=== PATIENT | female | born 1995 | race African-American/Black ===

== ENCOUNTER 2021-05-05 09:08 | Emergency (ER) | payer MEDICAID ==
[~2021-05-05] VITALS: Ht 165.1 cm; Wt 122.4 kg
[2021-05-05 09:22] VITALS: BP 141/50
[2021-05-05] MEDS ORDERED: cefTRIAXone IM 500 MG VIAL. IM ONE (09:30)
--- NOTE | 2021-05-05 09:45 | PHYS DOC ---
Past History Past Medical History: Anxiety Past Surgical History: No Surgical History Smoking: Non-smoker Alcohol Use: None Drug Use: Marijuana General Adult EDM: Chief Complaint: SEXUALLY TRANSMITTED DISEASE HPI: HPI: Patient is a 25 year old female who presents with constant dull bilateral back aches for the past week. She believes these aches could be due to COVID-19 as she was in crowds at an acting competition with her daughter two weeks ago. Denies any known exposure. States pain radiates into her abdomen. Rates her pain as 8/10 currently but states it is 10/10 at worst. Denies any alleviating factors but she notes her pain worsens when she is sitting upright. Also reports nausea and chills. She has not been vaccinated for COVID-19. She also has concerns for possible STI. Reports she had intercourse with someone other than her boyfriend this past weekend and complains of a "bleach" to her urine as well as increased urinary frequency. She does not know if she is , reports LMP was at the beginning of March. Reports she has irregular menstrual cycles. She reports urine tests were negative throughout all of her previous pregnancies. Denies trauma. Review of Systems: Review of Systems: Constitutional: Reports chills. Denies fever Eyes: Denies redness or eye pain HENT: Denies nasal congestion or sore throat Respiratory: Denies cough or shortness of breath Cardiovascular: Denies chest pain or palpitations GI: Reports abdominal pain and nausea. Denies vomiting : Reports frequency. Denies dysuria, discharge or hematuria Musculoskeletal: Reports bilateral back pain. Denies joint pain Integument: Denies rash or skin lesions Neurologic: Denies headache, focal weakness or sensory changes Complete systems were reviewed and found to be within normal limits, except as documented in this note. Current Medications: Current Meds: Current Medications Medications (Trade) Dose Ordered Sig/Shari Start Time Stop Time Status Last Admin Dose Admin Ceftriaxone Sodium (Rocephin Im) 500 mg 1X ONCE 05/05/21 09:30 05/05/21 09:31 UNV Allergies: Allergies: Denies Physical Exam: PE: Constitutional: Well developed, well nourished, no acute distress, non-toxic appearance HENT: Normocephalic, atraumatic Eyes: Conjunctiva normal, no discharge Neck: Normal range of motion, no tenderness, supple Lungs & Thorax: No respiratory distress, equal chest rise and fall Abdomen: Soft, no tenderness : Pelvic exam performed with female barrer and tacker- Renata LEVY. Normal appearing external female genitalia. There was a moderate amount of milky discharge in cervical vault but cervix was otherwise unremarkable. No CMT. No adnexal tenderness or masses palpated. Skin: Warm, dry, no erythema, no rash Back: No tenderness, no CVA tenderness Extremities: No tenderness, ROM intact, no edema Neurologic: Alert and oriented X 3, speech normal Psychologic: Affect normal, judgment normal Current Patient Data: Vital Signs: Vital Signs Date Time Temp Pulse Resp B/P (MAP) Pulse Ox O2 Delivery O2 Flow Rate FiO2 05/05/21 09:22 98.1 18 141/50 100 Room Air EKG: EKG: [] Radiology/Procedures: Radiology/Procedures: PROCEDURE: CT ABDOMEN PELVIS WO CONTRAST CT ABDOMEN+PELVIS WO INDICATION: flank pain, R>L eval for kidney stone / Spl. Instructions: / History: EXAM: Noncontrast CT of the abdomen and pelvis. Coronal and sagittal reformatted images were performed. PQRS compliance statement: One or more of the following individualized dose reduction techniques were utilized for this examination: 1. Automated exposure control 2. Adjustment of the mA and/or kV according to patient size 3. Use of iterative reconstruction technique COMPARISON: None FINDINGS: No free air, free fluid, or fluid collection. Lower chest: The visualized lower lungs are aerated. No pleural or pericardial effusion. ABDOMEN: Liver: The noncontrast liver is homogeneous in attenuation. Gallbladder and biliary: Normal gallbladder without radiopaque stone. Normal caliber bile ducts. Spleen: Normal spleen. Pancreas: The noncontrast pancreas is homogeneous in attenuation without peripancreatic inflammatory changes. Adrenal glands: Normal adrenal glands. Kidneys and ureters: No opaque urinary calculi. Normal kidneys and ureters. GI tract: The stomach is decompressed and poorly evaluated. Normal caliber small bowel and colon. Normal appendix. Vascular structures: Normal caliber abdominal aorta. Lymph nodes: No lymphadenopathy in the abdomen or pelvis. PELVIS: Genitourinary system: Normal bladder. Uterus is present. SKELETAL STRUCTURES AND SOFT TISSUES: No fracture or destructive lesion in the visualized skeleton. IMPRESSION: No acute findings. No hydronephrosis or opaque urinary calculi. Electronically signed by: Selvin Ni MD (05/05/2021 11:14 AM) [id number] Heart Score: C/O Chest Pain: N/A Course & Med Decision Making: Course & Med Decision Making Pertinent Labs and Imaging studies reviewed. (See chart for details) 25 year old female presents with bilateral back aches and concerns for COVID-19 infection. Also has concerns for possible STI exposure. Pelvic exam performed. No adnexal tenderness or CMT. Chlamydia/gonorrhea cultures obtained and pending. Empiric antibiotic initiated with IM Rocephin and a prescription for doxycycline provided. Wet mount negative. Labs also obtained and posted to chart. CT abdomen/pelvis stable. Of note patient's urine test was negative. Patient reports on her previous pregnancies her urine never reflected her . Patient therefore received a beta hCG which was also negative. Patient stable for discharge with outpatient follow-up with PCP. Discussed findings and plan with patient, who acknowledges understanding and agreement. COVID-19 CRITERIA: The patient was evaluated during the global COVID-19 pandemic, and that diagnosis was suspected/considered upon their initial presentation. Their evaluation, treatment and testing was consistent with current guidelines for patients who present with complaints or symptoms that may be related to COVID-19. Dragon Disclaimer: Dragon Disclaimer: This electronic medical record was generated, in whole or in part, using a voice recognition dictation system. Departure Departure: Impression: Primary Impression: Flank pain Additional Impressions: Concern about sexually transmitted disease in female without diagnosis Suspected 2019 novel coronavirus infection Disposition: HOME / SELF CARE / HOMELESS Condition: STABLE Referrals: PCP,NO (PCP) Patient Instructions: Flank Pain, [id number], Sexually Transmitted Disease, [id number] Additional Instructions: Increase fluid hydration. Use [id number] ibuprofen and or Tylenol for pain or discomfort. Please take prescribed antibiotics to completion. You have been tested for or diagnosed with COVID-19. It is an infection caused by a new type of coronavirus. COVID-19 will cause cold-like or mild flu symptoms in most. It can cause more severe symptoms like problems breathing in some. There is no treatment for COVID-19. The body will clear the infection over time. Self-care will help to ease discomfort. Steps to Take: Self-Care Rest as needed. Healthy habits may help you feel better. Steps include: Choose healthy foods including fruits and vegetables. Drink water throughout the day. Get plenty of sleep each night. If you smoke, try to quit. It may ease breathing. Avoid alcohol. Keep Others Healthy The virus can spread to others. Droplets are released every time you sneeze or cough. The droplets can get into the mouth, nose, or eyes of people near you and lead to infection. To lower the chances of spreading COVID-19 to others: Stay at home until your doctor has said it is safe to leave. If you tested positive this will mean staying isolated until both of the following are true: At least 7 days have passed since the start of illness. You are free of fever for at least 72 hours without the use of medicine. During this time: - Avoid public areas, events, or transportation. Do not return to work or school until your doctor has said it is safe to do so. - Call ahead if you need to go to a medical center. Let them know you may have COVID-19. It will help them guide you where to go. They may also ask you to wear a facemask when you come to the office. - If you call for emergency medical services, let them know you may have COVID- 19. While at home: - Try to avoid close contact with others. Stay about 6 feet away. - If possible, spend most of your time in a separate room from others. - Use a face mask if you will be in close contact with others such as sharing a room or vehicle. - Have someone wipe down common surfaces in the home. Use household funeral driver every day on areas like doorknobs, counters, or sinks. - Cough or sneeze into a tissue. Throw the tissue away right after use. If a tissue is not available, cough or sneeze into your elbow. - Wash your hands often. Wash them after sneezing or coughing. Use soap and water and wash for at least 20 seconds. Alcohol based hand tuckpointer cleaner caulker can be used if soap and water is not available. - Do not prepare food for others. Avoid sharing personal items like forks, spoons, or toothbrushes. - Avoid close contact with pets while you are sick. There is no evidence of the virus passing to pets. This is a safety step until more is known about this virus. Isolation can be frustrating. Social interaction can help. Keep in touch with friends and family through phone and tech options. You can still interact with others in your home, just keep a safe distance of about 6 feet. Follow-up: Your doctors office will check in with you to see if there are any changes in your health. You may be asked to keep track of symptoms to share with them. They will also let you know when you are clear to be in public again. Problems to Look Out For: Contact your doctor if your recovery is not going as you expect. Get emergency care if you have problems such as: - Trouble breathing - Nonstop chest pain or pressure - Changes in awareness, confusion, or problems waking - Lips or face have bluish color - Worsening of symptoms If you think you have an emergency, call for emergency medical services right away. As taken from [facility] Doxycycline Hyclate (DOXYCYCLINE HYCLATE) 100 Mg Tablet 1 TAB PO BID for STD exposure, #14 TAB Prov: SHONDA CEBALLOS DO 05/05/21 Orphenadrine Citrate (ORPHENADRINE CITRATE) 100 Mg Tablet.er 1 TAB PO BID PRN for MUSCLE PAIN, #14 TAB 0 Refills Prov: SHONDA CEBALLOS DO 05/05/21 COVID-19 Assessment COVID-19 Patient Risks: Age 65 or older: No Sign of co-morbidity: No Exp to person + for COVID: No Exp to PUI: No Travel from affected area: No Lower respiratory symptoms: No Fever: Yes Other: Yes PPE Use: Full PPE with N95 mask or PAPR: Yes SHONDA CEBALLOS DO May 05, 2021 09:44
[2021-05-05 10:24] LABS: BILIRUBIN,URINE NEG (NEG); CLARITY,URINE CLEAR; COLOR,URINE YELLOW; GLUCOSE,URINE NEG (NEG); NITRITE,URINE NEG (NEG)
[2021-05-05 10:25] LABS: BACTERIA,URINE 0 /HPF (0-FEW); RBC,URINE 0 /HPF (0-2); SQUAMOUS EPITHELIAL CELL,UR FEW /LPF; WBC,URINE 0 /HPF (0-4)
[2021-05-05] MEDS ORDERED: IV NORMAL SALINE 1,000ML 1,000 ML IV ONE (10:45)
[2021-05-05] MEDS ORDERED: KETOROLAC 15 MG/ML VIAL. IVP ONE (10:45)
[2021-05-05] MEDS ORDERED: METOCLOPRAMIDE HCL 10 MG/2 ML VIAL. IVP ONE (10:45)
[2021-05-05 11:01] LABS: BASO # 0.1 x10^3/uL (0.0-0.2); BASO % 1 % (0-3); EOS # 0.1 x10^3/uL (0.0-0.7); EOS % 1 % (0-3); HEMATOCRIT 41.4 % (36.0-47.0); HEMOGLOBIN 13.6 g/dL (12.0-15.5); LYMPH # 2.7 x10^3/uL (1.0-4.8); LYMPH % 31 % (24-48); MEAN CORPUSCULAR HEMOGLOBIN 30 pg (25-35); MEAN CORPUSCULAR HGB CONC 33 g/dL (31-37); MEAN CORPUSCULAR VOLUME 90 fL (79-100); MONO # 0.4 x10^3/uL (0.0-1.1); MONO % 4 % (0-9); NEUT # 5.4 x10^3uL (1.8-7.7); NEUT % 62 % (31-73); PLATELET COUNT 319 x10^3/uL (140-400); RED BLOOD COUNT 4.59 x10^6/uL (3.50-5.40); RED CELL DISTRIBUTION WIDTH 14.1 % (11.5-14.5); WHITE BLOOD COUNT 8.7 x10^3/uL (4.0-11.0)
[2021-05-05 11:11] LABS: CALCIUM 9.3 mg/dL (8.5-10.1); CREATININE 0.8 mg/dL (0.6-1.0); GFR 105.8; POTASSIUM 4.1 mmol/L (3.5-5.1)
--- NOTE | 2021-05-05 11:16 | RAD ---
CT ABDOMEN+PELVIS WO INDICATION: flank pain, R>L eval for kidney stone / Spl. Instructions: / History: EXAM: Noncontrast CT of the abdomen and pelvis. Coronal and sagittal reformatted images were perform ed. PQRS compliance statement: One or more of the following individualized dose reduction techniques were utilized for this examinat ion: 1. Automated exposure control 2. Adjustment of the mA and/or kV according to patient size 3. Use of iterative reconstruction technique COMPARISON: None FINDINGS: No free air, free fluid, or fluid collection. Lower chest: The visualized lower lungs are aerated. No pleural or pericardial effusion. ABDOMEN: Liver: The noncontrast liver is homogeneous in attenuation. Gallbladder and biliary: Normal gallbladder without radiopaque stone. Normal caliber bile ducts. Spleen: Normal spleen. Pancreas: The noncontrast pancreas is homogeneous in attenuation without peripancreatic inflammatory changes. Adrenal glands: Normal adrenal glands. Kidneys and ureters: No opaque urinary calculi. Normal kidneys and ureters. GI tract: The stomach is decompressed and poorly evaluated. Normal caliber small bowel and colon. Nor mal appendix. Vascular structures: Normal caliber abdominal aorta. Lymph nodes: No lymphadenopathy in the abdomen or pelvis. PELVIS: Genitourinary system: Normal bladder. Uterus is present. SKELETAL STRUCTURES AND SOFT TISSUES: No fracture or destructive lesion in the visualized skeleton. IMPRESSION: No acute findings. No hydronephrosis or opaque urinary calculi. Electronically signed by: Selvin Ni MD (05/05/2021 11:14 AM) [id number]
[2021-05-05 11:17] LABS: ALBUMIN 3.7 g/dL (3.4-5.0); ALBUMIN/GLOBULIN RATIO 0.8 (1.0-1.7); MAGNESIUM 2.1 mg/dL (1.8-2.4); TOTAL BILIRUBIN 0.4 mg/dL (0.2-1.0); TOTAL PROTEIN 8.4 g/dL (6.4-8.2)
[2021-05-05] MEDS ORDERED: DOXY100T PO (11:26)
[2021-05-05] MEDS ORDERED: ORPH-16 PO (11:26)
[2021-05-07 01:07] LABS: CHLAMYDIA PROBE Negative (Negative)
== END 2021-05-05 11:51 | disposition home or self-care (01) ==
LOC: ER 09:08
DX: R10.9 Unspecified abdominal pain (principal); M54.89 Other dorsalgia; R11.0 Nausea; F41.9 Anxiety disorder, unspecified; Z20.2 Contact with and (suspected) exposure to infections with a predominantly sexual mode of transmission; Z20.822 Contact with and (suspected) exposure to COVID-19
CPT/HCPCS: 36415; 74176; 80053; 81001; 81025; 83605; 83735; 84702; 85025; 87491; 87591; 96361; 96372; 96374; 96375; 99284; C9803; J0696; J1885; J2765; J7030; Q0111; U0003

== ENCOUNTER 2021-07-15 20:26 | Emergency (ER) | payer MEDICAID ==
[~2021-07-15] VITALS: Ht 165.1 cm; Wt 119.2 kg
[~2021-07-15 20:26] MED LIST: DOXY100T PO; ORPH-16 PO
[2021-07-15 21:42] LABS: BACTERIA,URINE FEW /HPF (0-FEW); BILIRUBIN,URINE SMALL (NEG); CLARITY,URINE CLOUDY; COLOR,URINE YELLOW; GLUCOSE,URINE NEG (NEG); NITRITE,URINE NEG (NEG); SQUAMOUS EPITHELIAL CELL,UR MOD /LPF
[2021-07-15 21:46] LABS: BASO % 1 % (0-3); EOS # 0.1 x10^3/uL (0.0-0.7); EOS % 2 % (0-3); HEMATOCRIT 38.4 % (36.0-47.0); HEMOGLOBIN 12.7 g/dL (12.0-15.5); LYMPH % 49 % (24-48); MEAN CORPUSCULAR HEMOGLOBIN 30 pg (25-35); MEAN CORPUSCULAR HGB CONC 33 g/dL (31-37); MEAN CORPUSCULAR VOLUME 89 fL (79-100); MONO # 0.5 x10^3/uL (0.0-1.1); MONO % 8 % (0-9); NEUT # 2.4 x10^3uL (1.8-7.7); NEUT % 40 % (31-73); PLATELET COUNT 287 x10^3/uL (140-400); RED BLOOD COUNT 4.31 x10^6/uL (3.50-5.40); RED CELL DISTRIBUTION WIDTH 13.8 % (11.5-14.5)
[2021-07-15] MEDS: IV NORMAL SALINE 1,000ML 1,000 ML IV ONE (21:46)
--- NOTE | 2021-07-15 21:46 | PHYS DOC ---
Past History Past Medical History: Anxiety (ESTEFANI LEVIN APRN) Past Surgical History: No Surgical History (ESTEFANI LEVIN APRN) Smoking: Non-smoker Alcohol Use: None Drug Use: Marijuana (ESTEFANI LEVIN APRN) General Adult EDM: Chief Complaint: NAUSEA/VOMITING/DIARRHEA HPI: HPI: Patient is a 26-year-old female who presents with nausea and vomiting for the last 3 to 4 days. Patient states "I cannot keep anything down". Patient reports weakness and dizziness. Patient appears very anxious. Patient is also stating "my hands and feet keep walking up and getting tingly". Patient denies fever. Denies shortness of breath, cough. No meds prior to arrival. Denies medical history. (ESTEFANI LEVIN APRN) Review of Systems: Review of Systems: ROS At least 10 ROS systems have been reviewed and are negative except as documented in the HPI. General: Negative except as outlined in HPI above. Skin: Negative except as outlined in HPI above. HEENT: Negative except as outlined in HPI above. Neck: Negative except as outlined in HPI above. Respiratory: Negative except as outlined in HPI above.. Cardiovascular: Negative except as outlined in HPI above. Abdomen: Negative except as outlined in HPI above. : Negative except as outlined in HPI above. Back/MSK: Negative except as outlined in HPI above. Neuro: Negative except as outlined in HPI above. Psych: Negative except as outlined in HPI above. (ESTEFANI LEVIN APRN) Current Medications: Current Meds: Current Medications Medications (Trade) Dose Ordered Sig/Shari Start Time Stop Time Status Last Admin Dose Admin Ondansetron HCl (Zofran) 4 mg 1X ONCE 07/15/21 21:30 07/15/21 21:31 DC Sodium Chloride 1,000 ml @ 1,000 mls/hr 1X ONCE 07/15/21 21:30 07/15/21 22:29 (ESTEFANI LEVIN APRN) Allergies: Allergies: Allergies Coded Allergies Type Severity Reaction Last Updated Verified No Known Drug Allergies 05/05/21 No (ESTEFANI LEVIN APRN) Physical Exam: PE: Constitutional: Well developed, well nourished, no acute distress, non-toxic appearance. [] HENT: Normocephalic, atraumatic, bilateral external ears normal, oropharynx moist, no oral exudates, nose normal. [] Eyes: PERRLA, EOMI, conjunctiva normal, no discharge. [] Neck: Normal range of motion, no tenderness, supple, no stridor. [] Cardiovascular:Heart rate sinus tachycardia, no murmur [] Lungs & Thorax: Bilateral breath sounds clear to auscultation [] Abdomen: Bowel sounds normal, soft, no tenderness, no masses, no pulsatile masses. [] Skin: Warm, dry, no erythema, no rash. [] Back: No tenderness, no CVA tenderness. [] Extremities: No tenderness, no cyanosis, no clubbing, ROM intact, no edema. [] Neurologic: Alert and oriented X 3, normal motor function, normal sensory function, no focal deficits noted. [] Psychologic: Affect normal, judgement normal, anxious mood (ESTEFANI LEVIN APRN) Current Patient Data: Labs: Laboratory Tests Test 07/15/21 21:24 POC Urine HCG, Qualitative hcg negative (Negative) Vital Signs: Vital Signs Date Time Temp Pulse Resp B/P (MAP) Pulse Ox O2 Delivery O2 Flow Rate FiO2 07/15/21 20:45 98.3 104 20 103/66 (78) 100 Room Air (ESTEFANI LEVIN APRN) EKG: EKG: Normal sinus rhythm, heart rate 80 bpm. No STEMI. Read by Dr. Huizar. [] (ESTEFANI LEVIN APRN) Radiology/Procedures: Radiology/Procedures: [] (ESTEFANI LEVIN APRN) Heart Score: C/O Chest Pain: No Risk Factors: Risk Factors: DM, Current or recent (<one month) smoker, HTN, HLP, family history of CAD, obesity. Risk Scores: Score 0 - 3: 2.5% MACE over next 6 weeks - Discharge Home Score 4 - 6: 20.3% MACE over next 6 weeks - Admit for Clinical Observation Score 7 - 10: 72.7% MACE over next 6 weeks - Early Invasive Strategies (ESTEFANI LEVIN APRN) Course & Med Decision Making: Course & Med Decision Making Pertinent Labs and Imaging studies reviewed. (See chart for details) [] 26-year-old male presents with nausea and vomiting for the last 3 to 4 days. Patient appears very anxious. Discussed with patient that she was h yperventilating and causing herself to feel dizzy and her hands and feet to lock up. Patient given NS bolus along with 4 mg of Zofran. Tested patient for Covid. Patient denies shortness of breath or cough. EKG shows normal sinus rhythm, 88 bpm, no STEMI. Patient report given to Dr. Huizar at 2145. (ESTEFANI LEVIN APRN) Course & Med Decision Making See Charting by Chas prior shift change for details. Patient take Tylenol and ibuprofen for discomfort. Wear a mask covers nose and mouth at all times. Self isolate. Encourage patient to get COVID vaccination went over this acute syndrome. Patient still adamant that the risk of getting vaccination greater than the infection Covid. States she plans on never getting the COVID vaccination. Pt. stated she had a relative because they got the vaccination. Clear fluid diet for two days. No solids or milk products. Impression: 1. Viral Syndrome (BONNY HUIZAR MD) Dragon Disclaimer: Dragon Disclaimer: This electronic medical record was generated, in whole or in part, using a voice recognition dictation system. (ESTEFANI LEVIN APRN) Departure Departure: Referrals: DILLON ALEJO (PCP) Scripts Ondansetron Hcl (ZOFRAN) 4 Mg Tablet 8 MG PO QIDPRN for nv, #30 TAB Prov: BONNY HUIZAR MD 07/16/21 Dragon Disclaimer This chart was dictated in whole or in part using Voice Recognition software in a busy, high-work load, and often noisy Emergency Department environment. It may contain unintended and wholly unrecognized errors or omissions. (BONNY HUIZAR MD) Attending Signature Attending Signature I have participated in the care of this patient and I have reviewed and agree with all pertinent clinical information above including history, exam, and recommendations. (BONNY HUIZAR MD) Attending Signature Attending Signature I have participated in the care of this patient and I have reviewed and agree with all pertinent clinical information above including history, exam, and recommendations. (BONNY HUIZAR MD) ESTEFANI LEVIN APRN Jul 15, 2021 21:46 BONNY HUIZAR MD Jul 16, 2021 00:11
[2021-07-15] MEDS: ONDANSETRON PF 4 MG/2 ML VIAL. IVP ONE (21:47)
[2021-07-15 21:54] LABS: CREATININE 0.6 mg/dL (0.6-1.0); GFR 146.2; POTASSIUM 4.1 mmol/L (3.5-5.1)
[2021-07-15 22:00] LABS: ALBUMIN 3.7 g/dL (3.4-5.0); ALBUMIN/GLOBULIN RATIO 0.9 (1.0-1.7); TOTAL BILIRUBIN 0.5 mg/dL (0.2-1.0); TOTAL PROTEIN 7.9 g/dL (6.4-8.2)
[2021-07-16 00:07] VITALS: BP 105/95
[2021-07-16] MEDS ORDERED: ONDA4TAB7 PO (00:18)
== END 2021-07-16 00:40 | disposition home or self-care (01) ==
LOC: ER 20:26
DX: B34.9 Viral infection, unspecified (principal); R11.2 Nausea with vomiting, unspecified; R42 Dizziness and giddiness; Z20.822 Contact with and (suspected) exposure to COVID-19
CPT/HCPCS: 80053; 81001; 81025; 85025; 93005; 96361; 96374; 99284; C9803; J2405; J7030; U0003

== ENCOUNTER 2021-07-28 08:17 | Emergency (ER) | payer MEDICAID ==
[~2021-07-28] VITALS: Ht 165.1 cm; Wt 117.2 kg
[~2021-07-28 08:17] MED LIST changes: +ONDA4TAB7 PO
[2021-07-28 08:30] VITALS: BP 156/83
--- NOTE | 2021-07-28 09:23 | PHYS DOC ---
Past History Past Medical History: Anxiety (ESTEFANI LEVIN APRN) Past Surgical History: No Surgical History (ESTEFANI LEVIN APRN) Smoking: Non-smoker Alcohol Use: None Drug Use: Marijuana (ESTEFANI LEVIN APRN) General Adult EDM: Chief Complaint: LACERATION/AVULSION HPI: HPI: Patient is a 26-year-old female presents with right, fifth digit abrasion, and pain. Patient states "I was having anxiety attack last night and was running up my steps outside when I tripped and fell". Denies hitting her head. Denies loss of consciousness patient is reporting pain to her fifth digit, right hand, wrist. Denies taking anything for pain. Patient states "I cannot swallow any pills because I am afraid to get stuck in my throat". Patient has full range of motion. (ESTEFANI LEVIN APRN) Review of Systems: Review of Systems: ROS At least 10 ROS systems have been reviewed and are negative except as documented in the HPI. General: Negative except as outlined in HPI above. Skin: Negative except as outlined in HPI above. HEENT: Negative except as outlined in HPI above. Neck: Negative except as outlined in HPI above. Respiratory: Negative except as outlined in HPI above.. Cardiovascular: Negative except as outlined in HPI above. Abdomen: Negative except as outlined in HPI above. : Negative except as outlined in HPI above. Back/MSK: Negative except as outlined in HPI above. Neuro: Negative except as outlined in HPI above. Psych: Negative except as outlined in HPI above. (ESTEFANI LEVIN APRN) Allergies: Allergies: Allergies Coded Allergies Type Severity Reaction Last Updated Verified No Known Drug Allergies 05/05/21 No (ESTEFANI LEVIN APRN) Physical Exam: PE: Constitutional: Well developed, well nourished, no acute distress, non-toxic appearance. [] HENT: Normocephalic, atraumatic, bilateral external ears normal, oropharynx moist, no oral exudates, nose normal. [] Eyes: PERRLA, EOMI, conjunctiva normal, no discharge. [] Neck: Normal range of motion, no tenderness, supple, no stridor. [] Cardiovascular:Heart rate regular rhythm, no murmur [] Lungs & Thorax: Bilateral breath sounds clear to auscultation [] Abdomen: Bowel sounds normal, soft, no tenderness, no masses, no pulsatile masses. [] Skin: Right, fifth digit, knuckle abrasion Back: No tenderness, no CVA tenderness. [] Extremities: Right wrist tenderness, no cyanosis, no clubbing, ROM intact, no edema, radial pulses intact. [] Neurologic: Alert and oriented X 3, normal motor function, normal sensory function, no focal deficits noted. [] Psychologic: Affect normal, judgement normal, mood normal. [] (ESTEFANI LEVIN APRN) Current Patient Data: Vital Signs: Vital Signs Date Time Temp Pulse Resp B/P (MAP) Pulse Ox O2 Delivery O2 Flow Rate FiO2 07/28/21 08:30 98.3 103 18 156/83 (107) 98 Room Air (ESTEFANI LEVIN APRN) EKG: EKG: [] (ESTEFANI LEVIN APRN) Radiology/Procedures: Radiology/Procedures: []Site ID: [id number] EXAMINATION: XR HAND_RIGHT 3 VIEWS, XR RT WRIST 3VIEWS. HISTORY: 26 years Female Reason: FALL, 5 DIGIT ABRASION,PAIN / Spl. Instructions: / History: . COMPARISON: None. FINDINGS: No fracture, dislocation or radiopaque foreign body is seen in 3 views of the right hand and 3 views of the right wrist. There is a radial deviation at the wrist joint on these radiographs which could be positional. The joint spaces and articular surfaces appear unremarkable. IMPRESSION: No fracture seen. Electronically signed by: Josef Buenrostro MD (07/28/2021 9:36 AM) [id number] (ESTEFANI LEVIN APRN) Heart Score: C/O Chest Pain: No Risk Factors: Risk Factors: DM, Current or recent (<one month) smoker, HTN, HLP, family history of CAD, obesity. Risk Scores: Score 0 - 3: 2.5% MACE over next 6 weeks - Discharge Home Score 4 - 6: 20.3% MACE over next 6 weeks - Admit for Clinical Observation Score 7 - 10: 72.7% MACE over next 6 weeks - Early Invasive Strategies (ESTEFANI LEVIN APRN) Course & Med Decision Making: Course & Med Decision Making Pertinent Labs and Imaging studies reviewed. (See chart for details) [] Abrasion was cleaned. Per patient tetanus up-to-date. patient given 15 mg of IM Toradol. X-ray of right hand and wrist ordered to rule out fracture. X-ray of right wrist and hand were both negative for fracture. Rice instructions given. Advised patient to take Motrin and Tylenol for discomfort. Patient most likely has a wrist sprain due to her fall. (ESTEFANI LEVIN APRN) Course & Med Decision Making I have participated in the care of this patient and I have reviewed and agree with all pertinent clinical information above including history, exam, and recommendations. Rony Salazar DO (RONY SALAZAR DO) Francesca Disclaimer: Francesca Disclaimer: This electronic medical record was generated, in whole or in part, using a voice recognition dictation system. (ESTEFANI LEVIN APRN) Departure Departure: Impression: Primary Impression: Abrasion of right little finger, initial encounter Additional Impression: Wrist pain, right Disposition: 01 HOME / SELF CARE / HOMELESS Condition: STABLE Referrals: DILLON ALEJO (PCP) Patient Instructions: Abrasion, [id number], RICE - Routine Care for Injuries, [id number] Additional Instructions: You are seen in the emergency room after a fall and abrasion to your right knuckle along in pain. X-ray of your right hand and wrist was negative for fracture. Use ice to the injured area, elevate to help with pain and swelling. Motrin and Tylenol at home for pain. If pain continues follow-up with your PCP. Return to emergency room with worsening symptoms or concerns. EMERGENCY DEPARTMENT GENERAL DISCHARGE INSTRUCTIONS Thank you for coming to [facility] (ED) today and trusting us with you care. We trust that you had a positivie experience in our Emergency Department. If you wish to speak to the department management, you may call the director at [phone]. YOUR FOLLOW UP INSTRUCTIONS ARE FOLLOWS: 1. Do you have a private Doctor? If you do not have a private doctor, please ask for a resource list of physicians or clinics that may be able to assist you with follo w up care. 2. The Emergency Physician has interpreted your x-rays. The X-Ray specialist will also review them. If there is a change in the findings, you will be notified in 48 hours when at all possible. 3. A lab test or culture has been done, your results will be reviewed and you will be notified if you need a change in treatment. ADDITIONAL INSTRUCTIONS AND INFORMATION: 1. Your care today has been supervised by a physician who is specially trained in emergency care. Many problems require more than one evaluation for a complete diagnosis and treatment. We recommend that you schedule your follow up appointment as rec ommended to ensure complete treatment of you illness or injury. If you are unable to obtain follow up care and continue to have a problem, or if your condition worsens, we recommend that you return to the ED. 2. We are not able to safely determine your condition over the phone nor are we able to give sound medical advice over the phone. For these safety reasons, if you call for medical advice we will ask you to come to the ED for further evaluation. 3. If you have any questions regarding these discharge instructions please call the ED at [phone]. SAFETY INFORMATION: In the interest of safety, wellness, and injury prevention; we encourage you to wear your sealbelt, if you smoke; quite smoking, and we encourage family to use a protective helmet for bicycling and other sporting events that present an increased risk for head injury. IF YOUR SYMPTOMS WORSEN OR NEW SYMPTOMS DEVELOP, OR YOU HAVE CONCERNS ABOUT YOUR CONDITION; OR IF YOUR CONDITION WORSENS WHILE YOU ARE WAITING FOR YOUR FOLLOW UP APPOINTMENT; EITHER CONTACT YOUR PRIMARY CARE DOCTOR, THE PHYSICIAN WHOSE NAME AND NUMBER YOU WERE GIVEN, OR RETURN TO THE ED IMMEDIATELY. ESTEFANI LEVIN APRN Jul 28, 2021 09:23 RONY SALAZAR DO Jul 31, 2021 00:25
--- NOTE | 2021-07-28 09:39 | RAD ---
Site ID: [id number] EXAMINATION: XR HAND_RIGHT 3 VIEWS, XR RT WRIST 3VIEWS. HISTORY: 26 years Female Reason: FALL, 5 DIGIT ABRASION,PAIN / Spl. Instructions: / History: . COMPARISON: None. FINDINGS: No fracture, dislocation or radiopaque foreign body is seen in 3 views of the right hand and 3 views of the right wrist. There is a radial deviation at the wrist joint on these radiographs which could b e positional. The joint spaces and articular surfaces appear unremarkable. IMPRESSION: No fracture seen. Electronically signed by: Josef Buenrostro MD (07/28/2021 9:36 AM) [id number]
[2021-07-28] MEDS: KETOROLAC 15 MG/ML VIAL. IM ONE (09:44)
== END 2021-07-28 10:22 | disposition home or self-care (01) ==
LOC: ER 08:17
DX: S60.416A Abrasion of right little finger, initial encounter (principal); M25.531 Pain in right wrist; W01.0XXA Fall on same level from slipping, tripping and stumbling without subsequent striking against object, initial encounter; Y93.89 Activity, other specified; Y92.89 Other specified places as the place of occurrence of the external cause; Y99.8 Other external cause status
CPT/HCPCS: 29130; 73110; 73130; 96372; 99284; J1885

== ENCOUNTER 2021-08-10 19:09 | Emergency (ER) | payer MEDICAID ==
[~2021-08-10] VITALS: Ht 165.1 cm; Wt 120.0 kg
[2021-08-10] MEDS ORDERED: IV NORMAL SALINE 1,000ML 1,000 ML IV ONE (20:00)
[2021-08-10 20:09] LABS: U PREG PATIENT NEGATIVE (NEG)
[2021-08-10 20:10] LABS: BILIRUBIN,URINE NEG (NEG); CLARITY,URINE CLOUDY; COLOR,URINE RED; GLUCOSE,URINE NEG (NEG); NITRITE,URINE NEG (NEG); UROBILINOGEN,URINE 0.2 mg/dL (0.2 mg/dL)
[2021-08-10 20:11] LABS: BACTERIA,URINE FEW /HPF (0-FEW); RBC,URINE >40 /HPF (0-2); SQUAMOUS EPITHELIAL CELL,UR FEW /LPF
[2021-08-10 20:12] LABS: BASO # 0.1 x10^3/uL (0.0-0.2); BASO % 1 % (0-3); EOS % 0 % (0-3); HEMATOCRIT 40.9 % (36.0-47.0); HEMOGLOBIN 13.5 g/dL (12.0-15.5); LYMPH # 2.9 x10^3/uL (1.0-4.8); LYMPH % 28 % (24-48); MEAN CORPUSCULAR HEMOGLOBIN 30 pg (25-35); MEAN CORPUSCULAR HGB CONC 33 g/dL (31-37); MEAN CORPUSCULAR VOLUME 91 fL (79-100); MONO # 0.3 x10^3/uL (0.0-1.1); MONO % 3 % (0-9); NEUT # 7.1 x10^3uL (1.8-7.7); NEUT % 68 % (31-73); PLATELET COUNT 318 x10^3/uL (140-400); RED BLOOD COUNT 4.51 x10^6/uL (3.50-5.40); RED CELL DISTRIBUTION WIDTH 14.3 % (11.5-14.5); WHITE BLOOD COUNT 10.4 x10^3/uL (4.0-11.0)
[2021-08-10 21:07] LABS: CALCIUM 8.7 mg/dL (8.5-10.1); CREATININE 0.6 mg/dL (0.6-1.0); GFR 146.2; POTASSIUM 3.6 mmol/L (3.5-5.1)
--- NOTE | 2021-08-10 21:29 | PHYS DOC ---
Past History Past Medical History: Anxiety (ESTEFAIN LEVIN APRN) Past Surgical History: No Surgical History (ESTEFANI LEVIN APRN) Smoking: Non-smoker Alcohol Use: None Drug Use: Marijuana (ESTEFANI LEVIN APRN) General Adult EDM: Chief Complaint: VAGINAL BLEEDING HPI: HPI: Patient is a 26-year-old female presents with vaginal bleeding since this morning. Patient states that she has had to change her pad 10 times today. Last menstrual period was 2 weeks ago. Patient is also reporting left-sided lower abdominal pain. Unknown . "I was trying to get last month and started my period". Denies nausea/vomiting/diarrhea. Denies dizziness. Afebrile. No medical history. (ESTEFANI LEVIN APRN) Review of Systems: Review of Systems: ROS At least 10 ROS systems have been reviewed and are negative except as documented in the HPI. General: Negative except as outlined in HPI above. Skin: Negative except as outlined in HPI above. HEENT: Negative except as outlined in HPI above. Neck: Negative except as outlined in HPI above. Respiratory: Negative except as outlined in HPI above.. Cardiovascular: Negative except as outlined in HPI above. Abdomen: Negative except as outlined in HPI above. : Negative except as outlined in HPI above. Back/MSK: Negative except as outlined in HPI above. Neuro: Negative except as outlined in HPI above. Psych: Negative except as outlined in HPI above. (ESTEFANI LEVIN APRN) Current Medications: Current Meds: Current Medications Medications (Trade) Dose Ordered Sig/Shari Start Time Stop Time Status Last Admin Dose Admin Sodium Chloride 1,000 ml @ 1,000 mls/hr 1X ONCE 08/10/21 20:00 08/10/21 20:59 DC 08/10/21 20:05 1,000 MLS/HR (ESTEFANI LEVIN APRN) Allergies: Allergies: Allergies Coded Allergies Type Severity Reaction Last Updated Verified No Known Drug Allergies 05/05/21 No (ESTEFANI LEVIN APRN) Physical Exam: PE: Constitutional: Well developed, well nourished, no acute distress, non-toxic appearance. [] HENT: Normocephalic, atraumatic, bilateral external ears normal, oropharynx moist, no oral exudates, nose normal. [] Eyes: PERRLA, EOMI, conjunctiva normal, no discharge. [] Neck: Normal range of motion, no tenderness, supple, no stridor. [] Cardiovascular:Heart rate regular rhythm, no murmur [] Lungs & Thorax: Bilateral breath sounds clear to auscultation [] Abdomen: Bowel sounds normal, soft, left lower tenderness, no masses, no pulsatile masses. [] Skin: Warm, dry, no erythema, no rash. [] Back: No tenderness, no CVA tenderness. [] Extremities: No tenderness, no cyanosis, no clubbing, ROM intact, no edema. [] Neurologic: Alert and oriented X 3, normal motor function, normal sensory function, no focal deficits noted. [] Psychologic: Affect normal, judgement normal, mood normal. [] (ESTEFANI LEVIN APRN) Current Patient Data: Labs: Laboratory Tests Test 08/10/21 19:30 08/10/21 19:47 08/10/21 20:39 Urine Collection Type Clean catch Urine Color Red Urine Clarity Cloudy Urine pH 7.5 Urine Specific [place] 1.020 Urine Protein Trace (NEG-TRACE) Urine Glucose (UA) Neg mg/dL (NEG) Urine Ketones (Stick) Neg mg/dL (NEG) Urine Blood Large (NEG) Urine Nitrite Neg (NEG) Urine Bilirubin Neg (NEG) Urine Urobilinogen Dipstick 0.2 mg/dL (0.2 mg/dL) Urine Leukocyte Esterase Neg (NEG) Urine RBC >40 /HPF (0-2) Urine WBC 11-20 /HPF (0-4) Urine Squamous Epithelial Cells Few /LPF Urine Bacteria Few /HPF (0-FEW) Urine Test Negative (NEG) White Blood Count 10.4 x10^3/uL (4.0-11.0) Red Blood Count 4.51 x10^6/uL (3.50-5.40) Hemoglobin 13.5 g/dL (12.0-15.5) Hematocrit 40.9 % (36.0-47.0) Mean Corpuscular Volume 91 fL (79-100) Mean Corpuscular Hemoglobin 30 pg (25-35) Mean Corpuscular Hemoglobin Concent 33 g/dL (31-37) Red Cell Distribution Width 14.3 % (11.5-14.5) Platelet Count 318 x10^3/uL (140-400) Neutrophils (%) (Auto) 68 % (31-73) Lymphocytes (%) (Auto) 28 % (24-48) Monocytes (%) (Auto) 3 % (0-9) Eosinophils (%) (Auto) 0 % (0-3) Basophils (%) (Auto) 1 % (0-3) Neutrophils # (Auto) 7.1 x10^3uL (1.8-7.7) Lymphocytes # (Auto) 2.9 x10^3/uL (1.0-4.8) Monocytes # (Auto) 0.3 x10^3/uL (0.0-1.1) Eosinophils # (Auto) 0.0 x10^3/uL (0.0-0.7) Basophils # (Auto) 0.1 x10^3/uL (0.0-0.2) Sodium Level 138 mmol/L (136-145) Potassium Level 3.6 mmol/L (3.5-5.1) Chloride Level 102 mmol/L (98-107) Carbon Dioxide Level 26 mmol/L (21-32) Anion Gap 10 (6-14) Blood Urea Nitrogen 8 mg/dL (7-20) Creatinine 0.6 mg/dL (0.6-1.0) Estimated GFR (Cockcroft-Gault) 146.2 Glucose Level 80 mg/dL (70-99) Calcium Level 8.7 mg/dL (8.5-10.1) Vital Signs: Vital Signs Date Time Temp Pulse Resp B/P (MAP) Pulse Ox O2 Delivery O2 Flow Rate FiO2 08/10/21 20:05 102 18 129/73 (91) 98 Room Air 08/10/21 19:19 98.6 (ESTEFANI LEVIN APRN) EKG: EKG: [] (ESTEFANI LEVIN APRN) Radiology/Procedures: Radiology/Procedures: [] (ESTEFANI LEVIN APRN) Heart Score: C/O Chest Pain: No Risk Factors: Risk Factors: DM, Current or recent (<one month) smoker, HTN, HLP, family history of CAD, obesity. Risk Scores: Score 0 - 3: 2.5% MACE over next 6 weeks - Discharge Home Score 4 - 6: 20.3% MACE over next 6 weeks - Admit for Clinical Observation Score 7 - 10: 72.7% MACE over next 6 weeks - Early Invasive Strategies (ESTEFANI LEVIN APRN) Course & Med Decision Making: Course & Med Decision Making Pertinent Labs and Imaging studies reviewed. (See chart for details) [] Nontoxic-appearing, 26-year-old female presents with vaginal bleeding since this morning. Patient states she has had to change her pad 10 times today. Patient reports she has been attempting to get but was unsuccessful last month. Patient states LMP was 2 weeks ago. Urine was negative. All labs were unremarkable. Urine negative and UA negative for infection. CT of abdomen pelvis ordered due to left lower quadrant pain. While patient was in the ER, she changed her pad twice. Patient states that bleeding has slowed down and her pad was not as full. CT abdomen pelvis unremarkable. Discussed results with patient. Advised patient she needs to call her DYE JIG OPERATOR tomorrow to make a follow-up appointment. Discussed return precautions. Patient states that she understands discharge instructions. Patient is hemodynamically stable upon disposition. (ESTEFANI LEVIN APRN) Dragon Disclaimer: Dragkyara Disclaimer: This electronic medical record was generated, in whole or in part, using a voice recognition dictation system. (ESTEFANI LEVIN APRN) Departure Departure: Impression: Primary Impression: Vaginal bleeding problems Additional Impression: Left lower quadrant abdominal pain Disposition: 01 HOME / SELF CARE / HOMELESS Condition: STABLE Referrals: DILLON ALEJO (PCP) Patient Instructions: Abdominal Pain, [id number] Additional Instructions: You are seen in the emergency room for vaginal bleeding. Please follow-up with your DYE JIG OPERATOR or PCP in the next 2 to 3 days. If bleeding becomes heavy again please return to the emergency room if you are unable to get into your PCP. If you are changing your pad once an hour, you will need to be seen. All of your labs in the ER were unremarkable. CT of your abdomen and pelvis was unremarkable as well. EMERGENCY DEPARTMENT GENERAL DISCHARGE INSTRUCTIONS Thank you for coming to [facility] ([facility]) today and trusting us with you care. We trust that you had a positivie experience in our Emergency Department. If you wish to speak to the department management, you may call the director at [phone]. YOUR FOLLOW UP INSTRUCTIONS ARE FOLLOWS: 1. Do you have a private Doctor? If you do not have a private doctor, please ask for a resource list of physicians or clinics that may be able to assist you with follow up care. 2. The Emergency Physician has interpreted your x-rays. The X-Ray specialist will also review them. If there is a change in the findings, you will be notified in 48 hours when at all possible. 3. A lab test or culture has been done, your results will be reviewed and you will be notified if you need a change in treatment. ADDITIONAL INSTRUCTIONS AND INFORMATION: 1. Your care today has been supervised by a physician who is specially trained in emergency care. Many problems require more than one evaluation for a complete diagnosis and treatment. We recommend that you schedule your follow up appointment as recommended to ensure complete treatment of you illness or injury. If you are unable to obtain follow up care and continue to have a problem, or if your condition worsens, we recommend that you return to the ED. 2. We are not able to safely determine your condition over the phone nor are we able to give sound medical advice over the phone. For these safety reasons, if you call for medical advice we will ask you to come to the ED for further evaluation. 3. If you have any questions regarding these discharge instructions please call the ED at [phone]. SAFETY INFORMATION: In the interest of safety, wellness, and injury prevention; we encourage you to wear your sealbelt, if you smoke; quite smoking, and we encourage family to use a protective helmet for bicycling and other sporting events that present an increased risk for head injury. IF YOUR SYMPTOMS WORSEN OR NEW SYMPTOMS DEVELOP, OR YOU HAVE CONCERNS ABOUT YOUR CONDITION; OR IF YOUR CONDITION WORSENS WHILE YOU ARE WAITING FOR YOUR FOLLOW UP APPOINTMENT; EITHER CONTACT YOUR PRIMARY CARE DOCTOR, THE PHYSICIAN WHOSE NAME AND NUMBER YOU WERE GIVEN, OR RETURN TO THE ED IMMEDIATELY. Attending Signature Attending Signature I have participated in the care of this patient and I have reviewed and agree with all pertinent clinical information above including history, exam, and recommendations. (BONNY YANES MD) ESTEFANI LEVIN APRN Aug 10, 2021 21:29 BONNY YANES MD Aug 14, 2021 17:45
--- NOTE | 2021-08-10 22:08 | RAD ---
Exam: CT of abdomen and pelvis without contrast INDICATION: Left lower quadrant pain, headache vaginal bleeding TECHNIQUE: Sequential axial images through the abdomen and pelvis obtained without IV contrast. Sagit anatoliy and coronal reformatted images were reconstructed from the axial data and reviewed. Exposure: One or more of the following in the visualized dose reduction techniques were utilized for this examination: 1. Automated exposure control 2. Adjustment of the MA and/or KV according to patient size 3. Use of iterative of reconstructive technique Comparisons: 05/05/2021 FINDINGS: Heart size is normal. No pericardial effusion. Visualized lung bases are clear. No pleural effusion. Evaluation of solid organs is limited secondary to noncontrast technique. Liver, spleen, pancreas, gallbladder and adrenals are unremarkable. No perinephric inflammation or hydronephrosis. No renal or ureteral calculi are identified. Bladder is partially distended and not well evaluated. Uterus is nonenlarged. No abnormal adnexal mas s. Large and small bowel are unremarkable. Appendix is normal. No free intra-abdominal air or fluid. No obstruction. Abdominal aorta has a normal course and caliber. No enlarged intra-abdominal lymph nodes are identified. No suspicious osseous lesions or acute fractures. IMPRESSION: No acute process identified within the abdomen or pelvis. Electronically signed by: Ankit Akbar MD (08/10/2021 10:06 PM) [facility]
[2021-08-10 22:49] VITALS: BP 156/82
== END 2021-08-10 22:50 | disposition home or self-care (01) ==
LOC: ER 19:09
DX: N93.8 Other specified abnormal uterine and vaginal bleeding (principal); R10.32 Left lower quadrant pain; F41.9 Anxiety disorder, unspecified
CPT/HCPCS: 36415; 74176; 80048; 81001; 81025; 85025; 86850; 86900; 86901; 87086; 96360; 96361; 99284; J7030

== ENCOUNTER 2021-09-18 16:32 | Emergency (ER) | payer MEDICAID ==
[~2021-09-18] VITALS: Ht 165.1 cm; Wt 112.7 kg
[2021-09-18] MEDS ORDERED: IV NORMAL SALINE 1,000ML 1,000 ML IV ONE (17:15)
[2021-09-18] MEDS ORDERED: ONDANSETRON PF 4 MG/2 ML VIAL. IVP ONE (17:15)
--- NOTE | 2021-09-18 17:55 | PHYS DOC ---
Past History Past Medical History: Anxiety (OLEGARIO ANDUJAR DO) Past Surgical History: No Surgical History (OLEGARIO ANDUJAR DO) Smoking: Non-smoker Alcohol Use: Occasionally Drug Use: Marijuana (OLEGARIO ANDUJAR DO) General Adult EDM: Chief Complaint: SORE THROAT HPI: HPI: 26-year-old female presents with sore throat and neck swelling. The patient has had worsening symptoms for a few days. She was tested for Covid on Tuesday was negative. Patient is concerned about strep throat. She has not had a fever at home. She also complains about some shortness of breath with deep breathing. She denies chest pain or diaphoresis. (OLEGARIO ANDUJAR DO) Review of Systems: Review of Systems: Constitutional: Denies fever or chills Eyes: Denies change in visual acuity HENT: sore throat Respiratory: shortness of breath Cardiovascular: Denies chest pain or edema GI: Denies abdominal pain, nausea, vomiting, bloody stools or diarrhea : Denies dysuria Musculoskeletal: Denies back pain or joint pain Integument: Denies rash Neurologic: Denies headache, focal weakness or sensory changes Endocrine: Denies polyuria or polydipsia Lymphatic: Denies swollen glands Psychiatric: Denies depression or anxiety (OLEGARIO ANDUJAR DO) Current Medications: Current Meds: Current Medications Medications (Trade) Dose Ordered Sig/Shari Start Time Stop Time Status Last Admin Dose Admin Ondansetron HCl (Zofran) 4 mg 1X ONCE 09/18/21 17:15 09/18/21 17:16 DC Sodium Chloride 1,000 ml @ 1,000 mls/hr 1X ONCE 09/18/21 17:15 09/18/21 18:14 (OLEGARIO ANDUJAR DO) Allergies: Allergies: Allergies Coded Allergies Type Severity Reaction Last Updated Verified No Known Drug Allergies 09/18/21 No (OLEGARIO ANDUJAR DO) Physical Exam: PE: Constitutional: Well developed, well nourished, no acute distress, non-toxic appearance. [] HENT: Normocephalic, atraumatic, bilateral external ears normal, oropharynx moist, no oral exudates, nose normal. [] Eyes: PERRLA, EOMI, conjunctiva normal, no discharge. [] Neck: Normal range of motion, no tenderness, supple, no stridor. [] Cardiovascular:Heart rate regular rhythm, no murmur [] Lungs & Thorax: Bilateral breath sounds clear to auscultation [] Abdomen: Bowel sounds normal, soft, no tenderness, no masses, no pulsatile masses. [] Skin: Warm, dry, no erythema, no rash. [] Back: No tenderness, no CVA tenderness. [] Extremities: No tenderness, no cyanosis, no clubbing, ROM intact, no edema. [] Neurologic: Alert and oriented X 3, normal motor function, normal sensory function, no focal deficits noted. [] Psychologic: Affect normal, judgement normal, mood normal. [] (OLEGARIO ANDUJAR DO) Current Patient Data: Vital Signs: Vital Signs Date Time Temp Pulse Resp B/P (MAP) Pulse Ox O2 Delivery O2 Flow Rate FiO2 09/18/21 17:01 99.0 114 18 152/75 (100) 98 Room Air (OLEGARIO ANDUJAR DO) EKG: EKG: [] (OLEGARIO ANDUJAR DO) Radiology/Procedures: Radiology/Procedures: [] (OLEGARIO ANDUJAR DO) Heart Score: C/O Chest Pain: N/A Risk Factors: Risk Factors: DM, Current or recent (<one month) smoker, HTN, HLP, family history of CAD, obesity. Risk Scores: Score 0 - 3: 2.5% MACE over next 6 weeks - Discharge Home Score 4 - 6: 20.3% MACE over next 6 weeks - Admit for Clinical Observation Score 7 - 10: 72.7% MACE over next 6 weeks - Early Invasive Strategies (OLEGARIO ANDUJAR DO) Course & Med Decision Making: Course & Med Decision Making Pertinent Labs and Imaging studies reviewed. (See chart for details) The patient's work-up is pending. I am signing her out to Dr. Huizar at 1800. [] (OLEGARIO ANDUJAR DO) Course & Med Decision Making See Dr. Powers chart prior Shif change for detatils.s Push fluids. Tyenol and Ibuprofen for discomfort. Benadryl 25 -50 mg up four times a day for discomfort and drainage. Follow up with primary. Contine self isolation if ill. Impression: 1. Viral Syndrome 2. Pharyngitis (BONNY HUIZAR MD) Francesca Disclaimer: Francesca Disclaimer: This electronic medical record was generated, in whole or in part, using a voice recognition dictation system. (OLEGARIO ANDUJAR DO) Departure Departure: Referrals: DILLON ALEJO (PCP) OLEGARIO ANDUJAR DO Sep 18, 2021 17:55 BONNY HUIZAR MD Sep 18, 2021 18:23
[2021-09-18 18:42] LABS: CALCIUM 8.7 mg/dL (8.5-10.1); CREATININE 0.8 mg/dL (0.6-1.0); GFR 104.9; POTASSIUM 3.6 mmol/L (3.5-5.1)
[2021-09-18 18:43] LABS: BASO # 0.1 x10^3/uL (0.0-0.2); BASO % 1 % (0-3); EOS # 0.2 x10^3/uL (0.0-0.7); EOS % 2 % (0-3); HEMATOCRIT 38.2 % (36.0-47.0); HEMOGLOBIN 12.6 g/dL (12.0-15.5); LYMPH # 2.3 x10^3/uL (1.0-4.8); LYMPH % 28 % (24-48); MEAN CORPUSCULAR HEMOGLOBIN 30 pg (25-35); MEAN CORPUSCULAR HGB CONC 33 g/dL (31-37); MEAN CORPUSCULAR VOLUME 90 fL (79-100); MONO # 0.6 x10^3/uL (0.0-1.1); MONO % 7 % (0-9); NEUT % 62 % (31-73); PLATELET COUNT 338 x10^3/uL (140-400); RED BLOOD COUNT 4.25 x10^6/uL (3.50-5.40); RED CELL DISTRIBUTION WIDTH 13.7 % (11.5-14.5); WHITE BLOOD COUNT 8.1 x10^3/uL (4.0-11.0)
[2021-09-18 18:45] LABS: ALBUMIN 3.4 g/dL (3.4-5.0); ALBUMIN/GLOBULIN RATIO 0.7 (1.0-1.7); TOTAL BILIRUBIN 0.4 mg/dL (0.2-1.0); TOTAL PROTEIN 8.4 g/dL (6.4-8.2)
[2021-09-18 18:49] LABS: BILIRUBIN,URINE NEG (NEG); CLARITY,URINE CLEAR; COLOR,URINE YELLOW; GLUCOSE,URINE NEG (NEG)
[2021-09-18 18:50] LABS: BACTERIA,URINE 0 /HPF (0-FEW); NITRITE,URINE NEG (NEG); RBC,URINE 0 /HPF (0-2); SQUAMOUS EPITHELIAL CELL,UR MANY /LPF; WBC,URINE OCC /HPF (0-4)
[2021-09-18 18:51] LABS: INFLUENZA A PATIENT NEGATIVE (NEGATIVE); INFLUENZA B PATIENT NEGATIVE (NEGATIVE)
--- NOTE | 2021-09-18 19:40 | RAD ---
EXAMINATION: XR CHEST 1V CLINICAL HISTORY: Shortness of breath EXAM DATE/TIME: 09/18/2021 5:56 PM COMPARISON: None FINDINGS: Lines, Tubes, and Devices: None. Cardiomediastinal Silhouette: Within normal limits. Lungs and Pleura: Patchy opacities in the right greater than left lower lung zones. No evidence of pl eural effusion or pneumothorax. Bones and Soft Tissues: No acute osseous abnormality. IMPRESSION: Patchy airspace disease in the right greater than left lower lung zones, possibly related to subsegme ntal atelectasis and/or pneumonia. Electronically signed by: Gaurav Newton DO (09/18/2021 7:38 PM) [facility]
[2021-09-18] MEDS ORDERED: KETOROLAC 30 MG/ML VIAL. ONE (20:21)
[2021-09-18] MEDS ORDERED: KETOROLAC 60 MG/2 ML VIAL. IM ONE (20:30)
[2021-09-18] MEDS ORDERED: KETOROLAC 30 MG/ML VIAL. IVP ONE (20:30)
[2021-09-18] MEDS ORDERED: predniSONE 10 MG TABLET. ONE (20:37)
[2021-09-18] MEDS ORDERED: diphenhydrAMINE ORAL ELIXIR 12.5 MG/5 ML ML ONE (20:37)
[2021-09-18] MEDS ORDERED: predniSONE 20 MG TABLET PO ONE (20:45)
[2021-09-18] MEDS ORDERED: diphenhydrAMINE HCL 25 MG CAPSULE PO ONE (20:45)
[2021-09-18] MEDS ORDERED: predniSONE 10 MG TABLET. PO ONE (20:45)
[2021-09-18 20:55] VITALS: BP 137/82
== END 2021-09-18 21:05 | disposition home health service (06) ==
LOC: ER 16:32
DX: J02.9 Acute pharyngitis, unspecified (principal); B34.9 Viral infection, unspecified; F12.10 Cannabis abuse, uncomplicated
CPT/HCPCS: 36415; 71045; 80053; 81001; 81025; 85025; 87070; 87086; 87804; 87880; 96361; 96374; 96375; 99284; J1885; J2405; J7030; J7512; Q0163

== ENCOUNTER 2021-12-09 20:19 | Emergency (ER) | payer MEDICAID ==
[~2021-12-09] VITALS: Ht 165.1 cm; Wt 112.7 kg
--- NOTE | 2021-12-09 20:23 | PHYS DOC ---
Past History Past Medical History: Anxiety Past Surgical History: No Surgical History Smoking: Non-smoker Alcohol Use: Occasionally Drug Use: Marijuana Adult General HPI HPI Patient is a 26-year-old female who presents with chills and body aches and fever and sore throat for the last couple days. States she did not take any medications at all. Did not call her primary care physician. States she is eating and drinking normally for her. States he is making urine and stool normally for her. Never had Covid. Has never been vaccinated for COVID. No known ill contacts. Denies any recent travels, traumas, chest pain, shortness of breath, wheeze, abdominal pain, nausea, vomiting, diarrhea. Review of Systems Review of Systems Review of systems otherwise unremarkable except noted in HPI Allergies Allergies Allergies Coded Allergies Type Severity Reaction Last Updated Verified No Known Drug Allergies 09/18/21 No Physical Exam Physical Exam Constitutional: Well developed, well nourished, no acute distress, non-toxic appearance. [] HENT: Normocephalic, atraumatic, bilateral external ears normal, oropharynx moist, mild posterior oropharyngeal erythema with no edema and no oral exudates, nose normal. [] Eyes: conjunctiva normal, no discharge. [] Neck: Normal range of motion, no tenderness, supple, no stridor. [] Cardiovascular: Sinus tachycardia Lungs & Thorax: Mild bilateral upper respiratory congestion Skin: Warm, dry, no erythema, no rash. [] Extremities: No tenderness, no cyanosis, no clubbing, ROM intact, no edema. [] Neurologic: Alert and oriented X 3, no focal deficits noted. [] Psychologic: Affect normal, judgement normal, mood normal. [] EKG EKG [] Radiology/Procedures Radiology/Procedures [] Heart Score C/O Chest Pain: No Risk Factors: Risk Factors: DM, Current or recent (<one month) smoker, HTN, HLP, family history of CAD, obesity. Risk Scores: Risk Factors: DM, Current or recent (<one month) smoker, HTN, HLP, family history of CAD, obesity. Course & Med Decision Making Course & Med Decision Making Patient is a 26-year-old female who presents with cold/flu/COVID symptoms Vital signs initially notable for tachycardia and fever. Physical exam noted above. Given medications for symptom control. COVID pending Chest x-ray Discussed all findings with patient. Discussed symptom management at home. Discussed COVID education and quarantine. Advised to follow-up in the morning with primary care physician update on ED visit and set up a follow-up for reevaluation Return precautions to the ED. Patient grateful, verbalized understanding and agreed with plan of discharge. Dragon Disclaimer Dragon Disclaimer This electronic medical record was generated, in whole or in part, using a voice recognition dictation system. Departure Departure: Impression: Primary Impression: Viral syndrome Disposition: HOME / SELF CARE / HOMELESS Condition: GOOD Referrals: DILLON ALEJO (PCP) Patient Instructions: Viral Syndrome Additional Instructions: Thank you for coming into the emergency department tonight and allowing us to take care of you. Please read the attached information carefully to go over things we discussed. Please continue a Tylenol, ibuprofen, Benadryl regimen as discussed. You were given a prescription of rectal Tylenol. If you would like to stop at the store and get some pediatric liquid Benadryl and liquid ibuprofen you can but this will be a lot of fluid to take. You could also consider just crushing your pills up and putting them in something like applesauce. Please follow-up with your primary care physician in the morning to update on your ED visit and set up a follow-up as soon as you can. Please come back with new or concerning symptoms as discussed You have been tested for or diagnosed with COVID-19. It is an infection caused by a new type of coronavirus. COVID-19 will cause cold-like or mild flu symptoms in most. It can cause more severe symptoms like problems breathing in some. There is no treatment for COVID-19. The body will clear the infection over time. Self-care will help to ease discomfort. Steps to Take: Self-Care Rest as needed. Healthy habits may help you feel better. Steps include: Choose healthy foods including fruits and vegetables. Drink water throughout the day. Get plenty of sleep each night. If you smoke, try to quit. It may ease breathing. Avoid alcohol. Keep Others Healthy The virus can spread to others. Droplets are released every time you sneeze or cough. The droplets can get into the mouth, nose, or eyes of people near you and lead to infection. To lower the chances of spreading COVID-19 to others: Stay at home until your doctor has said it is safe to leave. If you tested positive this will mean staying isolated until both of the following are true: At least 7 days have passed since the start of illness. You are free of fever for at least 72 hours without the use of medicine. Please also check the CDC website for current guidelines for COVID quarantine as a change frequently During this time: - Avoid public areas, events, or transportation. Do not return to work or school until your doctor has said it is safe to do so. - Call ahead if you need to go to a medical center. Let them know you may have COVID-19. It will help them guide you where to go. They may also ask you to wear a facemask when you come to the office. - If you call for emergency medical services, let them know you may have COVID- 19. While at home: - Try to avoid close contact with others. Stay about 6 feet away. - If possible, spend most of your time in a separate room from others. - Use a face mask if you will be in close contact with others such as sharing a room or vehicle. - Have someone wipe down common surfaces in the home. Use household lens and frames prescription clerk every day on areas like doorknobs, counters, or sinks. - Cough or sneeze into a tissue. Throw the tissue away right after use. If a tissue is not available, cough or sneeze into your elbow. - Wash your hands often. Wash them after sneezing or coughing. Use soap and water and wash for at least 20 seconds. Alcohol based hand equipment or machinery cleaner can be used if soap and water is not available. - Do not prepare food for others. Avoid sharing personal items like forks, spoons, or toothbrushes. - Avoid close contact with pets while you are sick. There is no evidence of the virus passing to pets. This is a safety step until more is known about this virus. Isolation can be frustrating. Social interaction can help. Keep in touch with friends and family through phone and tech options. You can still interact with others in your home, just keep a safe distance of about 6 feet. Follow-up: Your doctors office will check in with you to see if there are any changes in your health. You may be asked to keep track of symptoms to share with them. They will also let you know when you are clear to be in public again. Problems to Look Out For: Contact your doctor if your recovery is not going as you expect. Get emergency care if you have problems such as: - Trouble breathing - Nonstop chest pain or pressure - Changes in awareness, confusion, or problems waking - Lips or face have bluish color - Worsening of symptoms If you think you have an emergency, call for emergency medical services right away. As taken from [facility] Acetaminophen Supp (ACETAMINOPHEN SUPP) 650 Mg Supp.rect 1 SUPP RC Q6HRS PRN for pain or fever for 1 Day, #6 SUPP 0 Refills Prov: VERITO SEYMOUR MD 12/09/21 VERITO SEYMOUR MD Dec 09, 2021 20:23
[2021-12-09 20:45] VITALS: BP 109/68
[2021-12-09] MEDS ORDERED: ACETAMINOPHEN 500 MG TABLET PO ONE (20:45)
[2021-12-09] MEDS ORDERED: diphenhydrAMINE HCL 25 MG CAPSULE PO ONE (20:45)
[2021-12-09] MEDS ORDERED: guaiFENesin/CODEINE 100mg/10mg 5 ML LIQUID PO PRN (20:45)
[2021-12-09] MEDS ORDERED: IBUPROFEN 800 MG TABLET. PO ONE ×2 (20:51→21:00)
--- NOTE | 2021-12-09 21:06 | RAD ---
XR CHEST 1V Clinical Indication: Reason: cough, fever / Spl. Instructions: / History: Comparison: AP chest September 18, 2021. Findings: The cardiomediastinal silhouette is normal. Lungs are clear. There is no pneumothorax. No pleural eff usion is appreciated. No acute bone abnormality. IMPRESSION: No acute cardiopulmonary process. Electronically signed by: Sebastian Chamberlain MD (12/09/2021 9:03 PM) [facility] MEDICAL CENTERMaribel
[2021-12-09] MEDS ORDERED: ACETAMINOPHEN 650 MG SUPP.RECT. PR ONE (21:15)
[2021-12-09] MEDS ORDERED: ACETAMINOPHEN 120 MG SUPP.RECT PR ONE (21:15)
[2021-12-09] MEDS ORDERED: ACET650S11 RC (21:15)
[2021-12-09] MEDS ORDERED: KETOROLAC 30 MG/ML VIAL. IM ONE (21:30)
== END 2021-12-09 21:26 | disposition home or self-care (01) ==
LOC: ER 20:19
DX: B34.9 Viral infection, unspecified (principal); F41.9 Anxiety disorder, unspecified; Z20.822 Contact with and (suspected) exposure to COVID-19
CPT/HCPCS: 71045; 87426; 99284; C9803; U0003